=== PATIENT | male | born 1965 | race Two or more races ===

== ENCOUNTER 2023-01-09 19:53 | Inpatient (IN) | payer OTHER ==
[~2023-01-09] VITALS: Ht 172.7 cm; Wt 127.0 kg
--- NOTE | 2023-01-09 20:09 | NUR ---
PACIENTE ALERTA Y ORIENTADO X3. REFIERE DOLOR ABDOMINAL CON NAUSEAS Y VOMITOS DESDE TINO
[2023-01-09] MEDS ORDERED: SIMVASTATIN80 MG PO (20:10)
[2023-01-09] MEDS ORDERED: COZAAR25 MG PO (20:10)
--- NOTE | 2023-01-09 20:34 | NUR ---
SE EDUCA PTE SOBRE TRATAMIENTO A REALIZARSE EN EL AREA EL MISMO REFIERE ENTENDER, SE LE CANALIZA Y PONE MAGNO, SE LE REALIZAN MUESTRAS DE LABORATORIO Y SE LE ADMINISTRA MEDICAMENTO. LAS MUESTRAS SON ENVIADAS DE INMEDIATO A LABORATORIO.
--- NOTE | 2023-01-09 23:17 | NUR ---
SE RECIBE PACIENTE DEL TURNO ANTERIOR EL MISMO SE ENCUENTRA UBICADO EN JACQUELYN CON BARANDAS ELEVADAS POR PRECAUCION A CAIDAS, SE LE ORIENTA A PACIENTE SOBRE CONTINUIDAD DE TX Y VERBALIZA ENTENDER, SE OBSERVA PACIENTE RECIBIENDO IV FLUIDS DELIA ORDEN, PENDIENTE LECTURA DE CT
--- NOTE | 2023-01-10 02:25 | NUR ---
NASOGASTRIC TUBE IS PLACE IN RIGHT NOSTRIL AND IS TESTED FOR PATENCY. NG TUBE IS CONNECTED TO INTERMITTENT SUCTION.
--- NOTE | 2023-01-10 07:24 | NUR ---
SE RECIBE PTE ALERTA Y ORIENTADO POR 3 EN JACQUELYN CON BARANDAS ELEVADA Y TIMBRE ACCESIBLE PTE NO PRESENTA DOLOR SE OBSERVA VENOPUNCION PATENTE Y OLIVER DE EDEMA SE OBSERVA PTE CON NGT EN FOSA NASAL DERECHA CON SUCCION INTERMITENTE PTE SE MANTIENE EN OBSERVACION Y BAJO TRATAMIENTO, PTE SE EN ESEPRA DEL DR MONTES
== END 2023-01-12 15:29 | disposition home or self-care (01) | DRG 390 ==
LOC: ER 19:53 → MEDI 01-10 10:19
PROVIDERS: ADMIT Internal Medicine; ATTEND Internal Medicine
PROC: 02HV33Z Insertion of Infusion Device into Superior Vena Cava, Percutaneous Approach (ICD-10-PCS; principal; 2023-01-10)
DX: K56.690 Other partial intestinal obstruction (principal); I10 Essential (primary) hypertension; Z20.822 Contact with and (suspected) exposure to COVID-19

== ENCOUNTER 2023-12-21 22:01 | Emergency (ER) | payer OTHER ==
[~2023-12-21] VITALS: Ht 172.7 cm; Wt 127.0 kg
[~2023-12-21 22:01] MED LIST: COZAAR25 MG PO; SIMVASTATIN80 MG PO
[2023-12-22 02:38] LABS: ALBUMIN 3.9 gm/dL (3.4-5.0); BILIRUBIN TOTAL 1.01 mg/dL (0.3-1.2); CALCIUM 9.6 mg/dL (8.5-10.1); CREATININE SERUM 0.98 mg/dL (0.70-1.30); GFR 78.83; GLOBULINA 4.4 G/DL (2.4-3.5); POTASSIUM 3.56 mEq/L (3.5-5.1); TOTAL PROTEIN 8.3 gm/dL (6.4-8.2)
[2023-12-22 03:58] LABS: PH,URINE 6.5 (5.0-8.0); URINE APPEARANCE Clear; URINE BACTERIA 7.5 uL (0.0-1933); URINE BILIRRUBIN Negative (NEGATIVE); URINE BLOOD Negative; URINE COLOR Dark Yellow; URINE GLUCOSE Negative (NEGATIVE); URINE LEUKOCYTE Trace; URINE NITRATE Negative; URINE PROTEIN 30 (NEGATIVE); URINE RBC 39.3 uL (0.0-20.8); URINE WBC 2.7 uL (0.0-23.2)
[2023-12-22 04:17] LABS: HEMATOCRIT 42.7 % (39.0-48.0); HEMOGLOBIN 14.3 g/dL (13-16.00); MEAN CELL VOLUME 88.6 fL (80.0-100.00); MEAN CORPUSCULAR HEMOGLOBIN 29.8 pg (27.00-32.0); MEAN CORPUSCULAR HGB CONC 33.6 g/dl (32.0-36.0); PLATELET COUNT 235 K/uL (150-450); RED BLOOD COUNT 4.82 M/uL (4.00-6.00); RED CELL DISTRIBUTION WIDTH 14.4 % (11.5-14.5)
== END 2023-12-22 10:53 | disposition home or self-care (01) ==
LOC: ER
PROVIDERS: General Practice
DX: R10.84 Generalized abdominal pain (principal); I10 Essential (primary) hypertension